=== PATIENT | female | born 1995 ===

== ENCOUNTER 2017-10-21 01:06 | Emergency (ER) | payer OTHER ==
[2017-10-21] MEDS ORDERED: EPINEPHrine/PF 1 MG/1 ML 1:1000 SUBCUT ONE (01:28)
[2017-10-21] MEDS ORDERED: methylPREDNISolone ACETATE 80 MG/ML VIAL IM PRN (01:30)
[2017-10-21] MEDS ORDERED: LORATADINE 10 MG TABLET PO ONE (01:32)
--- NOTE | 2017-10-21 01:35 | ED Physician Documentation ---
Allergy Symptoms - HISTORIAN Historian: patient, friend - [facility] Chief Complaint: Allergic Reaction Additional Information: acute urticaria unsure etiol. ph had similar before allergic to fruit et al Onset: hours, days ago (2 has taken benadryl w/o help) Duration: continues in ED, worse Associated Symptoms: skin rash, trunk, extremities, diffuse redness Swelling: face, throat (slight) Shortness of Breath: moderate Trouble Swallowing/ Speaking: none Identified Cause: possibly Context: Food Exposure: other (fruit) Further Comments: yes (had few prev similar episodes) - ROS EYES/ENT: eye itching, sore throat CONST: no problems (otherwise) NEURO/PSYCH: anxiety - PAST HX Prior Allergic Reaction: other (similar episodes in past-not ssure what has caused this or them except fruit reaction) Medical History: none - SOCIAL HX Smoking History: less than 1 pack/day Alcohol Use: none Drug Use: none - FAMILY HX Family History: No - REVIEWED ASSESSMENTS Nursing Assessment Reviewed: Yes Vitals Reviewed: Yes ED Results Lab/Radiology - Orders Orders: ED Orders Category Date Time Status EPINEPHrine/PF [Adrenalin 1:1000] Med 10/21/17 01:28 Once 0.3 mg SUBCUT NOW ONE Loratadine [Claritin] Med 10/21/17 01:32 Once 10 mg PO NOW ONE methylPREDNISolone ACETATE [Depo-Medrol] Med 10/21/17 01:30 Ordered 80 mg IM NOW PRN Allergy Symptons Exam - EXAM General Appearance: moderate distress HEENT: voice nml. No: pharynx nml Skin: skin rash, urticaria, generalized Extremities: non-tender, nml ROM, no edema Respiratory: no resp. distress, breath sounds nml. No: respiratory distress CVS: reg rate & rhythm, heart sounds normal Abdomen: non-tender, no distention Neuro: oriented X3, sensation nml, mood/affect nml, cognition normal Discharge Clincal Impression: acute allergic reaction-genl urticaria Comments: rx for pred to carry w/pt also suggest she use claritin prn instead of benadryl Condition: Good Disposition: 01 HOME, SELF-CARE Decision to Admit: NO Decision Time: 01:42
[2017-10-21] MEDS ORDERED: ONDANSETRON HCL 4 MG TAB.RAPDIS ONE (01:46)
[2017-10-21] MEDS ORDERED: methylPREDNISolone ACETATE 80 MG/ML VIAL IM ONE (01:46)
[2017-10-21] MEDS ORDERED: ONDANSETRON HCL 4 MG TAB.RAPDIS PO ONE (01:48)
[2017-10-21] MEDS ORDERED: predniSONE 10 MG TABLET PO ONE (07:00)
[2017-10-21] MEDS ORDERED: diphenhydrAMINE SOLUTION 12.5 MG/5 ML 60ML BOTTLE PO ONE (07:00)
[2017-10-21] MEDS ORDERED: diphenhydrAMINE HCL 25 MG TABLET PO ONE ×2 (07:00→08:06)
[2017-10-21 07:05] VITALS: BP 110/57
[2017-10-21] MEDS ORDERED: predniSONE 20 MG TABLET PO ONE (08:06)
== END 2017-10-21 06:45 | disposition home or self-care (01) ==
LOC: ED 01:06
DX: L50.9 Urticaria, unspecified (principal); T78.40XA Allergy, unspecified, initial encounter; X58.XXXA Exposure to other specified factors, initial encounter; Y92.9 Unspecified place or not applicable; Y93.9 Activity, unspecified; Y99.9 Unspecified external cause status
CPT/HCPCS: A9270; J0171; J1040; J7512; Q0163; 99283